=== PATIENT | male | born 1980 | race Caucasian/White ===

== ENCOUNTER 2016-05-10 10:22 | Emergency (ER) | payer OTHER ==
[~2016-05-10] VITALS: Ht 172.7 cm; Wt 86.2 kg
[~2016-05-10 10:22] MED LIST: MULTIVITAMIN1 TAB PO
[2016-05-10 10:33] VITALS: BP 168/96
--- NOTE | 2016-05-10 11:38 | ED UPPER/LOWER EXTREMITY COMPL ---
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 STATES HIS ARM FEELS WEAKER SINCE INCIDENT. WORKMANS COMP COMPLETED. Triage Nurses Notes Reviewed? 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 He felt a pop in the anterior elbow distal biceps region and immediate weakness/loss of strength. He has had pain in that area since. This occurred prior to arrival. He has no previous injury to the area. No treatment thus far. He complains of weakness with flexion and pain with flexion at the elbow since the injury. No shoulder pain or injury. (SUDARSHAN CANCINO) Past History Travel History Traveled to [place] past 21 day No Medical History Any Pertinent Medical History? none Neurological: NONE EENT: NONE Cardiovascular: NONE Respiratory: NONE Gastrointestinal: NONE Hepatic: NONE Renal: NONE Musculoskeletal: NONE Psychiatric: NONE Endocrine: NONE Blood Disorders: NONE Cancer(s): NONE POT FLUXER/Reproductive: R/L TESTICULAR HERNIA Influenza Vaccine: 02/16/14 Surgical History Surgical History: non-contributory Psychosocial History What is your primary language Bangladeshi Tobacco Use: Never used Family History Hx Contributory? No (SUDARSHAN CANCNIO) Review of Systems Review of Systems Constitutional: Reports: see HPI. EENTM: Reports: no symptoms. Respiratory: Reports: no symptoms. Cardiovascular: Reports: no symptoms. Gastrointestinal/Abdominal: Reports: no symptoms. Genitourinary: Reports: no symptoms. Musculoskeletal: Reports: see HPI. Skin: Reports: no symptoms. Neurological/Psychological: Reports: no symptoms. Hematologic/Endocrine: Reports: no symptoms. Immunological: Reports: no symptoms. All Other Systems: Reviewed and Negative (SUDARSHAN CANCINO) Physical Exam Physical Exam General Appearance: well developed/nourished Comments: Well-developed well-nourished no apparent distress. HEENT: Atraumatic, extraocular motion intact Neck: Supple, no lymphadenopathy Back: Nontender Respiratory: No respiratory distress Extremities: No edema, full range of motion Neuro: Alert and oriented x3 Psych: Mood affect normal, normal memory normal judgment. Skin: Warm and dry, no rash on exposed skin Right upper extremity, distal bicep region, there appears to be a partial tearing of the distal biceps tendon, tendon on the right side does not feel as robust tender on the left and there is mild swelling and spongy sensation noted to the distal biceps region. Patient is still able to fully flex and has strength against resistance, he feels as though his supination is weaker and limited. No proximal biceps region pain or tenderness. no ecchymosis. Neurovascularly intact right upper extremity (SUDARSHAN CANCINO) Progress Differential Diagnosis: contusion, dislocation, fracture, tendon injury Plan of Care: Orders Procedure Date/time Status Durable Medical Equipment 05/10 1138 Active Comments: In my opinion Patient has at least a partial tearing of his distal biceps tendon and or tearing of the musculotendinous junction. He will require MRI scanning to evaluate need for surgery. He is placed in a sling of the right upper extremity and should remain in the sling until he is seen by occupational medicine or orthopedist within the next few days. Motion of Tylenol as needed for pain, ice and rest recommended. No work until cleared by orthopedist (SUDARSHAN CANCINO) Departure Departure Disposition: HOME OR SELF CARE Condition: Stable Clinical Impression Primary Impression: Traumatic rupture of distal biceps tendon Qualifiers: Encounter type: initial encounter Laterality: right Qualified Code: S46.211A - Strain of muscle, fascia and tendon of other parts of biceps, right arm, initial encounter Referrals: JOSE TORRES,CORRIE Olvera (PCP/Family) JANINE TORRES,TAMERA An Additional Instructions: Stay in sling, ice, Motrin and Tylenol for pain You'll need to follow up with orthopedist or occupational medicine within the next few days and have an MRI to evaluate for partial tear versus full tear which will require surgery Departure Forms: Customer Survey Employee Industrial Accident General Discharge Information (SUDARSHAN CANCINO) PA/STANDARDS ENGINEER Co-Sign Statement Statement: ED Attending supervision documentation- [] I saw and evaluated the patient. I have also reviewed all the pertinent lab results and diagnostic results. I agree with the findings and the plan of care as documented in the PA's/STANDARDS ENGINEER's documentation. [X] I have reviewed the ED Record and agree with the PA's/STANDARDS ENGINEER's documentation. [] Additions or exceptions (if any) to the PAs/STANDARDS ENGINEER's note and plan are summarized below: [] (EDEL MARTINEZ DO
== END 2016-05-10 11:59 ==
LOC: ERH 10:22
DX: S46.211A Strain of muscle, fascia and tendon of other parts of biceps, right arm, initial encounter (principal); X58.XXXA Exposure to other specified factors, initial encounter